=== PATIENT | female | born 1975 | race Hispanic/Latino ===

== ENCOUNTER 2019-06-14 20:47 | Emergency (ER) | payer BC | END 2019-06-14 21:33 | disposition home or self-care (01) | LOC: EDH 20:47 | DX: L03.032 Cellulitis of left toe (principal) ==

== ENCOUNTER 2021-08-11 14:26 | Inpatient (IN) | payer BC, OTHER ==
[~2021-08-11] VITALS: Ht 152.4 cm; Wt 85.6 kg
[2021-08-11 14:55] LABS: BASOPHILS % (AUTO) 0.4 % (0.0-5.0); EOSINOPHILS % (AUTO) 0.7 % (0.0-8.0); HEMATOCRIT 28.8 % (36-48); LYMPHOCYTES % (AUTO) 9.2 % (21.0-51.0); MEAN CORPUSCULAR HGB CONC 28.1 g/dL (32.0-36.0); MEAN CORPUSCULAR VOLUME 64.1 fL (79-99); NEUTROPHILS % (AUTO) 85.2 % (40.0-77.0); PLATELET COUNT (AUTO) 367 K/uL (130-400); RED BLOOD CELL COUNT(AUTO) 4.49 MIL/uL (4.00-5.50); RED CELL DISTRIBUTION WIDTH 19.3 % (11.0-15.5); WHITE BLOOD COUNT (AUTO) 12.4 K/uL (4.8-10.8)
[2021-08-11] MEDS ORDERED: 0.9%NACL 1000ML 1,000 ML IV ONE ×2 (15:00→17:30)
[2021-08-11] MEDS ORDERED: ONDANSETRON 4MG INJ IVP ONE (15:00)
[2021-08-11] MEDS ORDERED: KETOROLAC 30MG VIAL (30MG/ML) IVP ONE (15:00)
[2021-08-11 15:04] LABS: CREATININE 0.7 mg/dL (0.5-1.5); POTASSIUM 4.5 mmol/L (3.5-5.1)
[2021-08-11 15:09] LABS: ALBUMIN 3.5 g/dL (3.5-5.0); BILIRUBIN,TOTAL 0.4 mg/dL (0.2-1.0); TOTAL PROTEIN, SERUM 7.3 g/dL (6.0-8.3)
[2021-08-11 15:16] LABS: APPEARANCE,URINE CLOUDY (CLEAR); BILIRUBIN,URINE NEGATIVE (NEGATIVE); COLOR,URINE ORANGE (YELLOW); GLUCOSE, URINE (UA) NEGATIVE (NEGATIVE); KETONES,URINE 40 mg/dL (NEGATIVE); LEUKOCYTE ESTERASE ,URINE TRACE (NEGATIVE); NITRATE,URINE NEGATIVE (NEGATIVE); OCCULT BLOOD,URINE MODERATE (NEGATIVE); PH,URINE 5.5 (5.0-8.0); PROTEIN,URINE 30 mg/dL (NEGATIVE); UROBILINOGEN,URINE 0.2 mg/dL (0.2-1.0)
[2021-08-11 15:32] LABS: BACTERIA,URINE Few /HPF (None Seen); RBC,URINE TNTC /HPF (0-1)
[2021-08-11 15:33] LABS: SQUAMOUS EPITHELIAL CELL,UR Few /HPF (0-2)
[2021-08-11] MEDS ORDERED: MORPHINE 4 MG SYG ONE (16:06)
[2021-08-11] MEDS ORDERED: MORPHINE 4 MG SYG IVP SCH (16:30)
[2021-08-11] MEDS ORDERED: KETOROLAC 15MG/ML VIAL (15MG/ML) IM PRN (17:30)
[2021-08-11] MEDS: CEFTRIAXONE 2GM VIAL IVP SCH (18:22)
[2021-08-11] MEDS: MORPHINE 2 MG SYG IVP PRN (20:27)
[2021-08-11] MEDS: FAMOTIDINE 20MG VIAL IV SCH (21:00)
[2021-08-11 22:35] VITALS: BP 108/64
[2021-08-11] MEDS ORDERED: TRAM50TA4 PO (22:38)
[2021-08-12] VITALS (23 sets, daily range): BP systolic 99–134; BP diastolic 48–76
[2021-08-12 05:16] LABS: HEMATOCRIT 24.5 % (36-48)
[2021-08-12 05:34] LABS: CREATININE 0.6 mg/dL (0.5-1.5); POTASSIUM 3.9 mmol/L (3.5-5.1)
[2021-08-12 05:47] LABS: % IRON SATURATION 3.8 % (22-44)
[2021-08-12 07:43] LABS: BILIRUBIN,TOTAL 0.3 mg/dL (0.2-1.0)
[2021-08-12 07:44] LABS: ALBUMIN 2.9 g/dL (3.5-5.0); TOTAL PROTEIN, SERUM 5.8 g/dL (6.0-8.3)
[2021-08-12] MEDS: FAMOTIDINE 20MG VIAL IV SCH ×2 (08:50→21:54)
[2021-08-12] MEDS: MORPHINE 2 MG SYG IVP PRN ×2 (08:50→18:38)
[2021-08-12 09:12] LABS: BASOPHILS % (AUTO) 0.4 % (0.0-5.0); EOSINOPHILS % (AUTO) 2.1 % (0.0-8.0); HEMATOCRIT 25.2 % (36-48); LYMPHOCYTES % (AUTO) 23.1 % (21.0-51.0); MEAN CORPUSCULAR HEMOGLOBIN 18.3 pg (27.0-33.0); MEAN CORPUSCULAR HGB CONC 28.2 g/dL (32.0-36.0); MEAN CORPUSCULAR VOLUME 65.1 fL (79-99); MONOCYTES % (AUTO) 6.3 % (3.0-13.0); NEUTROPHILS % (AUTO) 67.7 % (40.0-77.0); PLATELET COUNT (AUTO) 320 K/uL (130-400); RED BLOOD CELL COUNT(AUTO) 3.87 MIL/uL (4.00-5.50); RED CELL DISTRIBUTION WIDTH 18.7 % (11.0-15.5); WHITE BLOOD COUNT (AUTO) 7.6 K/uL (4.8-10.8)
[2021-08-12] MEDS ORDERED: LACTATED RINGERS 1000ML 1,000 ML IV ONE (10:53)
[2021-08-12] MEDS ORDERED: GLYCOPYRROLATE 1 MG/5 ML SYRINGE ONE (11:25)
[2021-08-12] MEDS ORDERED: MIDAZOLAM HCL 1 MG/ML 2ML VIAL ONE (11:25)
[2021-08-12] MEDS ORDERED: ROCURONIUM 10MG/1ML SYR 10 MG/ML ML ONE (11:25)
[2021-08-12] MEDS ORDERED: PROPOFOL 10 MG/ML 20ML VIAL IV ONE (11:25)
[2021-08-12] MEDS ORDERED: FENTANYL CITRATE PF 50 MCG/1 ML 2ML VIAL ONE (11:26)
[2021-08-12] MEDS ORDERED: IOHEXOL-350 50ML VIAL IV ONE (11:27)
[2021-08-12] MEDS ORDERED: SUCCINYLCHOLINE 200MG/10ML SYR ONE (12:23)
[2021-08-12] MEDS ORDERED: LIDOCAINE PF 100MG/5ML (2%) SYRINGE 5ML ONE (12:23)
[2021-08-12] MEDS ORDERED: ONDANSETRON 4MG INJ ONE (12:31)
[2021-08-12] MEDS: CEFTRIAXONE 2GM VIAL IVP SCH (18:33)
[2021-08-12] MEDS: PHENAZOPYRIDINE HCL 200 MG TABLET PO SCH (21:54)
[2021-08-12] MEDS: OXYBUTYNIN CHLORIDE 5 MG TABLET PO SCH (21:54)
[2021-08-13 00:01] VITALS: BP 102/47
[2021-08-13] MEDS: MORPHINE 2 MG SYG IVP PRN ×2 (00:01→11:04)
[2021-08-13 04:01] VITALS: BP 99/44
[2021-08-13 04:15] LABS: BASOPHILS % (AUTO) 0.4 % (0.0-5.0); HEMATOCRIT 25.1 % (36-48); LYMPHOCYTES % (AUTO) 21.2 % (21.0-51.0); MEAN CORPUSCULAR HEMOGLOBIN 18.2 pg (27.0-33.0); MEAN CORPUSCULAR HGB CONC 28.3 g/dL (32.0-36.0); MEAN CORPUSCULAR VOLUME 64.4 fL (79-99); MONOCYTES % (AUTO) 5.6 % (3.0-13.0); NEUTROPHILS % (AUTO) 70.5 % (40.0-77.0); PLATELET COUNT (AUTO) 344 K/uL (130-400); RED CELL DISTRIBUTION WIDTH 18.8 % (11.0-15.5); WHITE BLOOD COUNT (AUTO) 9.1 K/uL (4.8-10.8)
[2021-08-13 04:44] LABS: ALBUMIN 2.7 g/dL (3.5-5.0); BILIRUBIN,TOTAL 0.2 mg/dL (0.2-1.0); CREATININE 0.7 mg/dL (0.5-1.5); POTASSIUM 3.3 mmol/L (3.5-5.1)
[2021-08-13 08:00] VITALS: BP 116/64
[2021-08-13] MEDS: OXYBUTYNIN CHLORIDE 5 MG TABLET PO SCH (09:50)
[2021-08-13] MEDS: PHENAZOPYRIDINE HCL 200 MG TABLET PO SCH (09:50)
[2021-08-13] MEDS: FAMOTIDINE 20MG VIAL IV SCH (09:50)
[2021-08-13 12:00] VITALS: BP 106/60
== END 2021-08-13 16:17 | disposition home or self-care (01) | DRG 661 ==
LOC: EDH 14:26 → EDHIP 14:27 → OBSVTOIN 14:27 → 3AH 21:54
PROVIDERS: ADMIT Internal Medicine; ATTEND Internal Medicine
PROC: 0T778DZ Dilation of Left Ureter with Intraluminal Device, Via Natural or Artificial Opening Endoscopic (ICD-10-PCS; principal; 2021-08-12 11:31)
PROC: 0TC78ZZ Extirpation of Matter from Left Ureter, Via Natural or Artificial Opening Endoscopic (ICD-10-PCS; 2021-08-12 11:31)
DX: N13.2 Hydronephrosis with renal and ureteral calculous obstruction (principal); Z20.822 Contact with and (suspected) exposure to COVID-19; D50.9 Iron deficiency anemia, unspecified; E66.9 Obesity, unspecified; N83.202 Unspecified ovarian cyst, left side; N92.0 Excessive and frequent menstruation with regular cycle; E79.0 Hyperuricemia without signs of inflammatory arthritis and tophaceous disease; Z68.36 Body mass index [BMI] 36.0-36.9, adult
CPT/HCPCS: 36415; 74018; 74176; 80053; 81001; 82360; 82728; 83540; 83550; 84703; 85014; 85018; 85025; 87088; 87635; A4344; A4354; C1758; C2617; G0378; J0330; J0696; J1885; J2001; J2250; J2270; J2405; J2704; J3010; J3490; J7030; J7120; Q9967